=== PATIENT | female | born 1945 | race Caucasian/White ===

== ENCOUNTER → 2017-06-21 | Outpatient (CLI) | payer MEDICARE, OTHER ==
--- NOTE | 2017-06-21 10:07 | US ---
EXAMINATION TYPE: US kidneys/renal and bladder DATE OF EXAM: 06/21/2017 COMPARISON: 05/16/2016 CLINICAL HISTORY: 71-year-old female Z90.5 Nephrectomy. History of left nephrectomy. TECHNIQUE: Multiple sonographic images of the kidneys and bladder were obtained. FINDINGS: Right Kidney: 12.3 x 4.8 x 5.4 cm without hydronephrosis. There is a 2.3 x 2.1 x 2.2 cm cystic lesio n with thin internal septations laterally in the kidney. This was previously measured at 2.2 x 1.9 x 2.1 cm. There are some differences in measurement technique. This appears larger as compared to 014. Left Kidney: surgically absent Bladder: Partial distention of the bladder limits its evaluation. Bilateral Jets seen: no IMPRESSION: 1. Mildly complex cyst in the lateral right kidney is stable to minimally larger measuring 2.3 x 2.1 cm versus 2.2 x 1.9 cm, previously. It appears to have enlarged as compared to 2014. Thin internal se ptations are present. Continued annual surveillance can be performed. 2. Status post left nephrectomy.
== END | disposition home or self-care (01) ==
LOC: RADUSWWP 08:52
PROVIDERS: ATTEND Internal Medicine Nephrology
DX: N28.1 Cyst of kidney, acquired (principal); Z90.5 Acquired absence of kidney
CPT/HCPCS: 76770

== ENCOUNTER → 2018-06-06 | Outpatient (CLI) | payer MEDICARE, OTHER ==
--- NOTE | 2018-06-06 10:26 | US ---
EXAMINATION TYPE: US kidneys/renal and bladder DATE OF EXAM: 06/06/2018 COMPARISON: US 06/21/2017 CLINICAL HISTORY: Z90.5 UNILATERAL NEPHRECTOMY. Known renal cyst. EXAM MEASUREMENTS: Right Kidney: 11.4 x 4.3 x 4.9 cm Left Kidney: Surgically absent Right Kidney: No hydronephrosis. Cystic area with septation lower pole measuring 2.1 x 1.8 x 1.9 cm Left Kidney: Surgically absent Bladder: Not distended Bilateral Jets seen: No, bladder is not distended IMPRESSION: 1. Minimally complex right cystic renal lesion measuring up to 2.1 cm, similar to the exams of 017 and 05/16/2016 and favored to be benign. 2. Status post left nephrectomy. No suspicious sonographic finding in the left renal fossa. 3. Urinary bladder is nondistended and incompletely evaluated.
== END | disposition home or self-care (01) ==
LOC: RADUSWWP 09:35
PROVIDERS: ATTEND Internal Medicine Nephrology
DX: N28.1 Cyst of kidney, acquired (principal); Z90.5 Acquired absence of kidney
CPT/HCPCS: 76770

== ENCOUNTER → 2020-11-11 | Outpatient (CLI) | payer MEDICARE, OTHER ==
[2020-11-11 16:25] LABS: Basophils % (A) 1 %; Eosinophils # (A) 0.2 k/uL (0-0.7); Eosinophils % (A) 3 %; HCT 37.6 % (34.0-46.0); HGB 12.5 gm/dL (11.4-16.0); Lymphocytes # (A) 1.4 k/uL (1.0-4.8); Lymphocytes % (A) 29 %; MCH 29.1 pg (25.0-35.0); MCHC 33.3 g/dL (31.0-37.0); MCV 87.4 fL (80.0-100.0); Monocytes # (A) 0.3 k/uL (0-1.0); Monocytes % (A) 6 %; Neutrophils # (A) 2.9 k/uL (1.3-7.7); Neutrophils % (A) 59 %; Platelet Count 229 k/uL (150-450); RDW 13.1 % (11.5-15.5)
[2020-11-11 16:35] LABS: Appearance,Urine Clear (Clear); Bilirubin,Urine Negative (Negative); Blood,Urine Negative (Negative); Color,Urine Light Yellow; Glucose,Urine (UA) Negative (Negative); Ketones,Urine Negative (Negative); Leukocyte Esterase,Urine Trace (Negative); Mucus,Urine Rare /hpf; Nitrite,Urine Negative (Negative); Protein,Urine Negative (Negative); Squamous Epithelial Cell,Urine <1 /hpf (0-4); Urobilinogen,Urine <2.0 mg/dL (<2.0); WBC,Urine <1 /hpf (0-5)
[2020-11-11 16:43] LABS: Creatinine,Urine Random 65.9 mg/dL; Protein/Creatinine Ratio,Urine 0.137
[2020-11-12 01:25] LABS: % Iron Saturation 24.26 (12.00-45.00); African American GFR (CKD) 43.1 (60.0-200.0); Albumin 4.5 g/dL (3.80-4.90); Anion Gap 8.4 mmol/L (4.00-12.00); BUN/Creat Ratio 18.57 Ratio (12.00-20.00); Calcium 9.2 mg/dL (8.7-10.3); Carbon Dioxide 26.6 mmol/L (21.6-31.8); Magnesium 2.1 mg/dL (1.5-2.4); Non-African American GFR(CKD) 37.2 (60.0-200.0); Phosphorus 5.2 mg/dL (2.4-5.1); Potassium 4.3 mmol/L (3.5-5.5); Uric Acid 6.5 mg/dL (2.9-7.7)
[2020-11-12 01:32] LABS: Ferritin 79.8 ng/mL (10.0-291.0)
== END | disposition home or self-care (01) ==
LOC: LABWHC1 15:55
PROVIDERS: ATTEND Internal Medicine Nephrology
DX: E55.9 Vitamin D deficiency, unspecified (principal); N18.30 Chronic kidney disease, stage 3 unspecified; D63.1 Anemia in chronic kidney disease; M10.9 Gout, unspecified; N39.0 Urinary tract infection, site not specified; R80.9 Proteinuria, unspecified; N25.81 Secondary hyperparathyroidism of renal origin
CPT/HCPCS: 36415; 80048; 81001; 82040; 82306; 82570; 82728; 83540; 83550; 83735; 83970; 84100; 84156; 84550; 85025

== ENCOUNTER → 2020-11-25 | Outpatient (CLI) | payer MEDICARE, OTHER ==
--- NOTE | 2020-11-25 16:19 | US ---
EXAMINATION TYPE: US kidneys/renal and bladder DATE OF EXAM: 11/25/2020 COMPARISON: US 06/06/2018 CLINICAL HISTORY: Z90.5 h/o unilateral nephrectomy. Follow up cyst EXAM MEASUREMENTS: Right Kidney: 11.6 x 4.8 x 4.3 cm Left Kidney: Surgically absent cm Right Kidney: No hydronephrosis. Cystic area visualized measuring 2.2 cm this may be in the renal si nus. Peripelvic cysts could be considered. Left Kidney: Surgically absent Bladder: Not distended IMPRESSION: 1. Right renal peripelvic or renal sinus cyst.
== END | disposition home or self-care (01) ==
LOC: RADUSWWP 14:59
PROVIDERS: ATTEND Internal Medicine Nephrology
DX: Z09 Encounter for follow-up examination after completed treatment for conditions other than malignant neoplasm (principal); Z90.5 Acquired absence of kidney
CPT/HCPCS: 76770

== ENCOUNTER → 2020-11-30 | Outpatient (CLI) | payer MEDICARE, OTHER ==
--- NOTE | 2020-12-01 08:13 | XR ---
Right hip HISTORY: Chronic right hip pain 2 views the right hip correlated to prior exam 06/25/2014 There is joint space loss that has progressed, subchondral lucency and sclerosis at the right hip. Al ignment is maintained. No fracture or dislocation. IMPRESSION: Osteoarthritis is favored.
== END | disposition home or self-care (01) ==
LOC: RADXRMAIN 16:13
PROVIDERS: ATTEND Internal Medicine
DX: M25.551 Pain in right hip (principal); G89.29 Other chronic pain
CPT/HCPCS: 73502

== ENCOUNTER → 2021-09-29 | Outpatient (CLI) | payer MEDICARE, OTHER ==
--- NOTE | 2021-09-29 14:18 | CT ---
EXAMINATION TYPE: CT abdomen pelvis wo con DATE OF EXAM: 09/29/2021 COMPARISON: None HISTORY: RLQ pain CT DLP: 908 mGycm Examination of the solid and hollow viscera is limited given the lack of contrast. FINDINGS: LUNG BASES: No evidence for nodule. No evidence for infiltrate. LIVER/GB: The gallbladder is surgically absent. No space-occupying hepatic lesion. PANCREAS: No pancreatic mass identified. No inflammatory process seen. SPLEEN: No evidence for splenomegaly. No intrasplenic lesions seen. ADRENALS: No adrenal nodules identified. No evidence for thickening. KIDNEYS: The left kidney is surgically absent. Hypoattenuating lesion right kidney. No nephrolithiasi s. No hydronephrosis. BOWEL: Appendix has a normal appearance. No evidence of bowel obstruction. No inflammatory process. Lymph nodes: No evidence for adenopathy greater than 1 cm. Abdominal aorta: Atheromatous changes seen. No evidence for aneurysm. Genital organs: No significant abnormality. Other: No significant abnormality. IMPRESSION: 1. No acute process seen at this time to account for the patient's symptoms.
== END | disposition home or self-care (01) ==
LOC: RADCTMAIN 11:59
PROVIDERS: ATTEND Internal Medicine
DX: R10.11 Right upper quadrant pain (principal); R10.31 Right lower quadrant pain
CPT/HCPCS: 74176

== ENCOUNTER → 2023-01-30 | Outpatient (CLI) | payer MEDICARE, OTHER ==
--- NOTE | 2023-01-30 13:16 | US ---
EXAMINATION TYPE: US renals and bladder DATE OF EXAM: 01/30/2023 COMPARISON: US 2020 CLINICAL HISTORY: N18.32 stage 3B ckd. Patient states no symptoms EXAM MEASUREMENTS: Right Kidney: 11.8 x 4.8 x 4.9 cm Left Kidney: Surgically absent Post Void Residual Volume: 9.5 mL Right Kidney: 2.6 x 1.9 x 2.4cm cystic area lateral mid pole Left Kidney: surgically absent Bladder: wnl Bilateral Jets seen: no Normal Post Void Residual: yes There is no evidence for hydronephrosis at this point in time. No nephrolithiasis is seen. No solid masses are identified. The urinary bladder is anechoic. Bilateral ureteral jets are seen. IMPRESSION: 1. Surgical absence of the left kidney. 2. Simple appearing cyst right kidney. Poor cortical medullary differentiation may reflect medical re nal disease.
== END | disposition home or self-care (01) ==
LOC: RADUSWWP 12:22
PROVIDERS: ATTEND Internal Medicine Nephrology
DX: N18.32 Chronic kidney disease, stage 3b (principal); N28.1 Cyst of kidney, acquired; Z90.5 Acquired absence of kidney
CPT/HCPCS: 76770

== ENCOUNTER → 2025-04-14 | Outpatient (CLI) | payer MEDICARE, OTHER ==
--- NOTE | 2025-04-14 16:14 | US ---
EXAMINATION TYPE: US kidneys/renal and bladder DATE OF EXAM: 04/14/2025 COMPARISON: US 01/30/2023 CLINICAL INDICATION: Female, 79 years old with history of N18.32 CHRONIC KIDNEY DISEASE, STAGE 3B; CK D TECHNIQUE: Grayscale imaging of the bilateral kidneys and urinary bladder: FINDINGS: EXAM MEASUREMENTS: Right Kidney: 11.3 x 5.0 x 5.8 cm Left Kidney: Surgically absent Right Kidney: Complex Cystic area seen at the inferior pole measuring 2.5 x 2.2 x 2.4 cm Left Kidney: Surgically absent Bladder: wnl There is no evidence for hydronephrosis at this point in time. No nephrolithiasis is seen. No dewey s are identified. The urinary bladder is anechoic. IMPRESSION: Complex cyst with septation in the right kidney. Monitoring with ultrasound is recommended. [facility], , 04/14/2025 4:12 PM
== END | disposition home or self-care (01) ==
LOC: RADUSWWP 14:20
PROVIDERS: ATTEND Family Medicine
DX: N18.32 Chronic kidney disease, stage 3b (principal); N28.1 Cyst of kidney, acquired
CPT/HCPCS: 76770

== ENCOUNTER → 2025-05-12 | Outpatient (CLI) | payer MEDICARE, OTHER ==
[2025-05-12 15:21] LABS: ALT 17 U/L (8-44); AST 24 U/L (13-35); Cholesterol 149.00 mg/dL (0.00-200.00); HDL Cholesterol 42.30 mg/dL (40.00-60.00); LDL Cholesterol,Calculated 86.3 mg/dL (0.0-131.0); Triglycerides 102.00 mg/dL (0.00-149.00); VLDL Calculation 20.40 mg/dL (5.00-40.00)
== END | disposition home or self-care (01) ==
LOC: LABWHC1 12:25
PROVIDERS: ATTEND Internal Medicine Interventional Cardiology
DX: E78.2 Mixed hyperlipidemia (principal)
CPT/HCPCS: 36415; 80061; 84450; 84460